=== PATIENT | female | born 1990 | race Two or more races ===

== ENCOUNTER 2018-11-30 16:33 | Emergency (ER) | payer MEDICAID, OTHER ==
[~2018-11-30] VITALS: Ht 154.9 cm; Wt 70.3 kg
[2018-11-30 18:00] VITALS: BP 133/86
[2018-11-30] MEDS ORDERED: cefTRIAXone SOD 1,000 MG VL IM ONE (19:45)
[2018-11-30] MEDS ORDERED: HYDROcodone-ACET 10/325MG TAB PO ONE (19:45)
== END 2018-11-30 20:10 | disposition home or self-care (01) ==
LOC: ER 16:42
DX: T81.33XA Disruption of traumatic injury wound repair, initial encounter (principal); Y83.8 Other surgical procedures as the cause of abnormal reaction of the patient, or of later complication, without mention of misadventure at the time of the procedure; Y92.89 Other specified places as the place of occurrence of the external cause
CPT/HCPCS: 73120; 96372; 99283; J0696